=== PATIENT | male | born 1950 | race Caucasian/White ===

== ENCOUNTER 2021-12-23 14:54 | Emergency (ER) | payer MEDICARE, OTHER | END 2021-12-23 18:26 | disposition home or self-care (01) | LOC: FER 14:54 | DX: G57.91 Unspecified mononeuropathy of right lower limb (principal); I69.951 Hemiplegia and hemiparesis following unspecified cerebrovascular disease affecting right dominant side; S21.119A Laceration without foreign body of unspecified front wall of thorax without penetration into thoracic cavity, initial encounter; I10 Essential (primary) hypertension; Z88.2 Allergy status to sulfonamides; Z88.5 Allergy status to narcotic agent; X58.XXXA Exposure to other specified factors, initial encounter | CPT/HCPCS: 93971 ==

== ENCOUNTER 2022-04-29 14:34 | Emergency (ER) | payer MEDICARE, OTHER ==
[2022-04-29 17:02] LABS: BASOPHIL 0.3 % (0-2); EOSINOPHIL 1.4 % (0-7); HCT 37.3 % (42.0-52.0); LYMPHOCYTE 18.9 % (15-48); MCH 29.1 pg (25.0-31.0); MCHC 34.9 g/dL (32.0-36.0); MCV 83.6 fL (78.0-100.0); MONOCYTE 9.4 % (0-12); MPV 9.2 fL (6.0-9.5); NEUTROPHIL 69.5 % (41-80); NRBC 0; PLT 341 K/uL (150-400); RBC 4.46 M/uL (4.70-6.00); RDW 12.7 % (11.5-14.0); WBC 5.8 K/uL (4.0-10.5)
[2022-04-29 17:20] LABS: BILIRUBIN NEGATIVE (NEGATIVE); BLOOD NEGATIVE Ery/uL (NEGATIVE); CLARITY CLEAR (CLEAR); COLOR YELLOW (YELLOW); GLUCOSE (U) NORMAL (NORMAL); LEUKOCYTES NEGATIVE Leu/uL (NEGATIVE); NITRITE NEGATIVE (NEGATIVE); PROTEIN NEGATIVE (NEGATIVE); SPECIFIC GRAVITY 1.015 (1.001-1.030); UROBILINOGEN 0.2 mg/dL (0.2-1.0)
[2022-04-29 17:23] LABS: ALBUMIN 3.7 g/dL (3.4-5.0); BILIRUBIN - TOTAL 0.5 mg/dL (0.2-1.0); BUN/CREAT RATIO (CALC) 19.7 RATIO; CREATININE 0.71 mg/dL (0.67-1.17); GLOBULIN (CALCULATION) 3.4 g/dL; POTASSIUM 4.2 mmol/L (3.5-5.1); TOTAL PROTEIN 7.1 g/dL (6.4-8.2)
[2022-04-29 17:26] LABS: LACTIC ACID 1.4 mmol/L (0.4-1.9)
[2022-04-29] MEDS ORDERED: CYCLOBENZAPRINE10 MG PO (18:06)
== END 2022-04-29 18:27 | disposition home or self-care (01) ==
LOC: FER 14:34
PROVIDERS: Physician Assistant
DX: J90 Pleural effusion, not elsewhere classified (principal); R10.32 Left lower quadrant pain; I10 Essential (primary) hypertension; Z86.73 Personal history of transient ischemic attack (TIA), and cerebral infarction without residual deficits; Z88.2 Allergy status to sulfonamides; Z88.5 Allergy status to narcotic agent; Z79.01 Long term (current) use of anticoagulants
CPT/HCPCS: 36415; 80053; 81003; 83605; 85025; J1885; J7030